=== PATIENT | male | born 1995 | race African-American/Black ===

== ENCOUNTER 2018-05-07 19:30 | Emergency (ER) | payer SELFPAY ==
--- NOTE | 2018-05-07 20:02 | EDM.PDOC ---
ED HPI GENERAL MEDICAL PROBLEM - General Chief Complaint: Laceration Stated Complaint: EAR INJURY Time Seen by Provider: 05/07/18 19:53 - History of Present Illness INITIAL COMMENTS - FREE TEXT/NARRATIVE: HISTORY AND PHYSICAL: History of present illness: The patient is a 22-year-old male who states he is up-to-date on his tetanus shot and presents after a chain hitting his left ear while he is at work when it fell off a small hiatal above him. He did not pass out or black out and actually tells nursing that he cried when this happened. He has no head neck or back pain no facial pain and only complains of pain at the top of his ear where there is a cut. Prior to these events he was in his usual state of health and had no systemic issues. He has no inner ear pain and no other discomfort. Review of systems: As per history of present illness and below otherwise all systems reviewed and negative. Past medical history: As per history of present illness and as reviewed below otherwise noncontributory. Surgical history: As per history of present illness and as reviewed below otherwise noncontributory. Social history: No reported history of drug or alcohol abuse. Family history: As per history of present illness and as reviewed below otherwise noncontributory. Physical exam: General: Well-developed well-nourished man who is nontoxic and vital signs were noted by me HEENT: Atraumatic scalp and head, normocephalic, pupils reactive, negative for conjunctival pallor or scleral icterus, mucous membranes moist, throat clear, neck supple, nontender, trachea midline. TMs are normal bilaterally and there is no mastoid erythema or tenderness. At the left ear at the top of the auricle there is a 1.25 cm laceration with slight separation of the skin and there is some crusted blood there but the cartilage appears to be intact. There some mild tenderness there but no soft tissue swelling. Lungs: Clear to auscultation, breath sounds equal bilaterally, chest nontender. Heart: S1S2, regular rate and rhythm no overt murmurs Abdomen: Soft, nondistended, nontender. NABS Pelvis: Deferred Genitourinary: Deferred. Rectal: Deferred. Extremities: Atraumatic, full range of motion without defects or deficits. Neurovascular unremarkable. Neuro: Awake, alert, oriented. Cranial nerves II through XII unremarkable. Cerebellum unremarkable. Motor and sensory unremarkable throughout. Exam nonfocal. Diagnostics: [] Therapeutics: Lidocaine without epinephrine for suture placement, bacitracin Procedure note: After the procedure was explained to the patient and the area was irrigated a circular block was placed with 1% lidocaine without epinephrine with the injection site being in the preauricular area and injecting in a circular fashion around the forward aspect of the ear. Some local was also infused throughout the course of the procedure at the The wound was explored prepped and draped in sterile fashion. The skin edges were reapproximated using a total number of # 5 sutures of 5-0 chromic in a simple interrupted fashion. There are no complications and the cartilage was not violated on visual inspection. There were no complications and the patient tolerated procedure well. Bacitracin was applied.. Impression: Left ear auricle laceration Definitive disposition and diagnosis as appropriate pending reevaluation and review of above. Left Ear Pain Score (Numeric/FACES): 1 - Related Data Allergies Allergy/AdvReac Type Severity Reaction Status Date / Time No Known Allergies Allergy Verified 05/07/18 19:52 Home Meds: Home Meds . [No Known Home Meds] 05/07/18 [History] Past Medical History - Past Health History Medical/Surgical History: Denies Medical/Surgical History Social & Family History - Family History Family Medical History: Noncontributory - Tobacco Use Smoking Status *Q: Never Smoker - Recreational Drug Use Recreational Drug Use: No ED ROS GENERAL - Review of Systems Review Of Systems: ROS reveals no pertinent complaints other than HPI. ED EXAM, SKIN/RASH Exam: See Below (See dictation) Course - Vital Signs Last Recorded V/S: Last Vital Signs Temp 36.7 C 05/07/18 19:50 Pulse 84 05/07/18 19:50 Resp 18 05/07/18 19:50 BP 125/86 05/07/18 19:50 Pulse Ox 100 05/07/18 19:50 - Orders/Labs/Meds Orders: Active Orders 24 hr Category Date Time Status Bacitracin [Bacitracin Oint 1 GM] Med 05/07/18 20:24 Once 1 dose TOP ONETIME ONE Meds: Medications Discontinued Medications Generic Name Dose Route Start Last Admin Trade Name Freq PRN Reason Stop Dose Admin Lidocaine HCl 5 ml 05/07/18 19:57 Xylocaine-Mpf 1% INJECT 05/07/18 19:58 ONETIME ONE Departure - Departure Time of Disposition: 20:25 Disposition: Home, Self-Care 01 Condition: Good Clinical Impression: Laceration of ear Qualifiers: Encounter type: initial encounter Laterality: left Qualified Code(s): S01.312A - Laceration without foreign body of left ear, initial encounter - Discharge Information Referrals: PCP,None [Primary Care Provider] - Forms: ED Department Discharge Additional Instructions: The following information is given to patients seen in the emergency department who are being discharged to home. This information is to outline your options for follow-up care. We provide all patients seen in our emergency department with a follow-up referral. The need for follow-up, as well as the timing and circumstances, are variable depending upon the specifics of your emergency department visit. If you don't have a primary care physician on staff, we will provide you with a referral. We always advise you to contact your personal physician following an emergency department visit to inform them of the circumstance of the visit and for follow-up with them and/or the need for any referrals to a consulting specialist. The emergency department will also refer you to a specialist when appropriate. This referral assures that you have the opportunity for followup care with a specialist. All of these measure are taken in an effort to provide you with optimal care, which includes your followup. Under all circumstances we always encourage you to contact your private physician who remains a resource for coordinating your care. When calling for followup care, please make the office aware that this follow-up is from your recent emergency room visit. If for any reason you are refused follow-up, please contact the emergency department at and ask to speak to the emergency department charge nurse. [facility] Special[facility] clinic-[facility] [address] [place] [id number] Keep the area clean and dry for the next 24 hours and then cleanse with mild soap and water pat dry and apply bacitracin or Neosporin. The sutures will dissolve on their own and do not need to be removed but you can follow-up with our plastic surgeon in the next few days for reevaluation and further care. Return to ER as needed and as discussed. - My Orders Last 24 Hours: My Active Orders 05/07/18 20:24 Bacitracin [Bacitracin Oint 1 GM] 1 dose TOP ONETIME ONE - Assessment/Plan Last 24 Hours: My Active Orders 05/07/18 20:24 Bacitracin [Bacitracin Oint 1 GM] 1 dose TOP ONETIME ONE
[2018-05-07] MEDS ORDERED: Bacitracin Oint 1 GM U/D Packet TOP ONE (20:24)
== END 2018-05-07 20:43 | disposition home or self-care (01) ==
LOC: MW.ED 19:30
DX: S01.312A Laceration without foreign body of left ear, initial encounter (principal); W22.8XXA Striking against or struck by other objects, initial encounter; Y99.0 Civilian activity done for income or pay
CPT/HCPCS: 99282